=== PATIENT | female | born 1945 ===

== ENCOUNTER → 2022-03-07 09:22 | Outpatient (BNVA) | payer MEDICARE, SELFPAY | PROVIDERS: PCP Physician Assistant; Visit Provider Internal Medicine | DX: M16.11 Unilateral primary osteoarthritis, right hip (principal) | CPT/HCPCS: 99202 ==

== ENCOUNTER 2022-04-27 06:13 | Outpatient (REF) | payer MEDICARE, SELFPAY ==
--- NOTE | ~2022-04-27 | FL_ITS ---
EXAMINATION: XR FLUOROSCOPY WITH IMAGES CLINICAL INFORMATION: Right hip trochanteric bursitis. COMPARISON: None. TECHNIQUE: Fluoroscopy Supervised By: Dr. Franklin Can. Fluoroscopy Time: 0.1 minutes. Cumulative Dose: 1.85 mGy. DAP: 0.380 Gycm2. Images: 2. FINDINGS: Contrast is seen within the right hip joint as well as about the greater trochanter. FL/FL guidance in treatment room IMPRESSION: Intraoperative fluoroscopy performed for pain management procedure.
== END 2022-04-27 06:14 | disposition home or self-care (01) ==
LOC: CF 06:13
PROVIDERS: Visit Provider Internal Medicine
DX: M70.61 Trochanteric bursitis, right hip (principal); M16.11 Unilateral primary osteoarthritis, right hip
CPT/HCPCS: 20610; J1040; J2795; Q9967